=== PATIENT | female | born 1990 | race Caucasian/White ===

== ENCOUNTER 2019-11-06 00:32 | Day surgery (SDC) | payer OTHER, SELFPAY ==
[2019-10-25 14:59] VITALS: BMI 27.3
--- NOTE | 2019-11-06 08:40 | P.PNAN_ITS ---
Anes - Initial Pre Proc Eval Procedure: Operation Date: 11/06/19 12:00 Proposed Procedures p Excision Subcutaneous Mass Lower Abdomen - Reza Vegas MD Date/Time: 11/06/19 08:40 Surgeon: Reza Vegas MD Pre Op Diagnosis: Hypoechoic Nodule Near Scar Patient Data Age: 29 Gender: F Height: 1.55 m Weight: 65.77 kg Allergies Allergy/AdvReac Type Severity Reaction Status Date / Time hydrocodone AdvReac Intermediate SEVERE Verified 10/25/19 15:00 VOMITING NARCOTICS AdvReac SEVERE N/V Uncoded 10/25/19 15:00 Home Medications Medication Instructions Recorded Confirmed Type No Home Medications 10/22/19 10/25/19 History Patient hx anesthesia problems: none Family hx anesthesia problems: none [facility] Social History Social History Smoking status: Former smoker Alcohol intake: current 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 Questions were solicited and answers provided to the satisfaction of the patient/family/POA.
[2019-11-06] MEDS: LACTATED RINGERS 1,000 ML 30 ML IV CONT (10:40)
[2019-11-06 11:29] VITALS: BP 102/55; PULSE 72; RESP 16; TEMP 37.1; O2SAT 100
--- NOTE | 2019-11-06 12:01 | WPDHPUPDATE1 ---
History and Physical Update Update Date/Time: 11/06/19 12:01 History and Physical has been reviewed, including an updated exam of the patient. There are NO changes in the patient's condition. Risks, benefits, and alternatives have been discussed and questions answered. Patient agrees to proceed with procedure.
[2019-11-06] MEDS: BUPIVACAINE/EPINEPHRINE 0.5% 10 ML VIAL 20 ML INFILTRATE (12:22)
[2019-11-06] MEDS: KETOROLAC 30 MG/ML VIAL (*BKC) IV PUSH (12:47)
[2019-11-06 12:50] VITALS: BP 105/58; PULSE 80
--- NOTE | 2019-11-06 13:07 | PM.PROC ---
Procedure Note - Detailed Date of procedure: 11/06/19 Pre-op diagnosis: Hypoechoic Nodule Near Scar Post-op diagnosis: same Procedure performed: Excision of skin lesion Description of procedure: The patient was placed in the supine position. After a surgical time out confirming patient and procedure the patient was prepped and draped in the usual sterile fashion. Local anesthetic was administered in the skin and subcutaneously. The lesion measured 2.0 x 1.5 cm. It was palpable deeply and subcutaneous tissues. The palpable mass was slightly above the left corner of her scar. I started my incision on the scar and extended slightly laterally. An incision was made over the lesion and I dissected straight down through the fat with needlepoint Bovie cautery until I could feel the somewhat hard and subcutaneous mass. Then taking a thin margin circumferentially, I dissected down to and through the deep subcutaneous tissues and then completely excised the lesion. The lesion seen to be sitting right on some of the anterior fascia of the external oblique. Bleeding was controlled with electrocautery. After removing the main subcutaneous mass having grasped with an Allis as excise that we palpated externally and it measured about 2 x 1.5 cm. Palpating within the wound right on the fascia there was a little bit of hard tissue still so excise that plus little bit of the external oblique fascia in about 1 cm diameter area. 100 Vicryl suture was placed in a [id number] fashion and then 1 more simple 1 on this fascia to reapproximate the fascia over some underlying muscle. The wound was then closed in two layers. An un-dyed 3-0 vicryl deep dermal and a few subcutaneous 3 -0 Vicryl were placed and then a 4-0 undyed Vicryl running subcuticular closure was completed. Surgical glue applied as dressing. Patient tolerated this well. Anesthesia: local (0.5% Marcaine with and epinephrine) and other (G IV S) Surgeon: Reza Vgeas MD [employer] Specialist: EJANIE Cid, OR 1st assist Estimated blood loss (mL): 3 Drains: No Packing: No Pathology: yes (2 pieces of subcutaneous mass suspected to be endometrioma) Complications: No immediate complications Condition: stable Disposition: same day Findings: Fat surrounding a hard palpable subcutaneous mass that was laying right on top of the external oblique fascia.
[2019-11-06 13:20] VITALS: BP 114/57; PULSE 79
[2019-11-06 13:45] VITALS: BP 100/55; PULSE 65
== END 2019-11-06 13:50 | disposition home or self-care (01) ==
PROVIDERS: PCP Family Medicine; Visit Provider Surgery
PROC: (CPT 22903; principal; 2019-11-06 12:00)
DX: N80.6 Endometriosis in cutaneous scar (principal); Z87.891 Personal history of nicotine dependence
CPT/HCPCS: 22903; 88304; 88305; J1100; J1885; J2250; J2405; J2704; J3010; J7120

== ENCOUNTER 2023-07-21 11:05 | Outpatient (CLI) | payer OTHER, SELFPAY ==
--- NOTE | ~2023-07-21 | MMUS_ITS ---
EXAMINATION: MM diagnostic mack BI w gabe, US breast BI limited HISTORY: Palpable lump in the lower inner quadrant of the right breast TECHNIQUE: Craniocaudal, mediolateral, and mediolateral oblique 3-D tomosynthesis images of the breas ts were performed and synthetic 2-D images were generated. CAD analysis was submitted and interpreted . High resolution limited bilateral breast ultrasound was performed. COMPARISON: 07/15/2013 BREAST PARENCHYMAL COMPOSITION: There are scattered areas of fibroglandular density. FINDINGS: MAMMOGRAPHIC FINDINGS: No suspicious mass, calcification, or architectural distortion are identified in either breast to sug gest malignancy. There has been no suspicious interval change. No mammographic correlate is identifie d for the reported palpable abnormality of the right breast. ULTRASOUND: There is no evidence of focal abnormal solid or cystic mass in the vicinity of the reported palpable abnormality of concern in the right breast. A 3 mm cyst is noted in the upper outer quadrant of the l eft breast. IMPRESSION: 1. No specific mammographic or sonographic correlate is identified for the reported palpable abnormal ity of concern in the right breast. Further evaluation at this time should be based on clinical asses sment. Continued follow-up physical examination is recommended. 2. Recommend routine screening mammography beginning at age 40. BI-RADS Category 2: Benign finding(s). Reviewed, dictated and finalized at location A. CING ASSISTANT IMPRESSION: 1. No specific mammographic or sonographic correlate is identified for the repo rted palpable abnormality of concern in the right breast. Further evaluation at this time should be based on clinical assessment. Continued follow-up physical examination is recommended. 2. Recommend routine screening mammography beginning at age 40. BI-RADS Category 2: Benign finding(s).
== END 2023-07-21 11:06 | disposition home or self-care (01) ==
PROVIDERS: PCP Family Medicine; Visit Provider Obstetrics & Gynecology
DX: N63.10 Unspecified lump in the right breast, unspecified quadrant (principal)
CPT/HCPCS: 76642; 77061; 77062; 77065; 77066; G0279

== ENCOUNTER 2024-03-04 15:18 | Outpatient (CLI) | payer OTHER, SELFPAY ==
[2024-03-04 15:50] LABS: Basophils Percent Auto 0.6 % (0.2-1.2); Eosinophils Absolute Auto 0.1 K/mm3 (0-0.3); Eosinophils Percent Auto 1.7 % (0-4.4); Hematocrit 37.8 % (37.0-47.0); Immature Granulocyte Absolute 0.01 K/mm3 (0.00-0.031); Immature Granulocyte Percent A 0.2 % (0-0.5); Lymphocytes Absolute Auto 2.09 K/mm3 (0.9-3.2); Lymphocytes Percent Auto 31.6 % (18.3-44.2); Mean Corpuscular HGB Conc 34.4 g/dl (32-36); Mean Corpuscular Hemoglobin 32.3 pg (26-34); Mean Platelet Volume 10.2 fl (7.4-10.4); Monocytes Absolute Auto 0.5 K/mm3 (0.1-0.6); Monocytes Percent Auto 7.1 % (2.6-8.5); Neutrophils Absolute Auto 3.9 K/mm3 (1.3-6.7); Neutrophils Percent Auto 58.8 % (45.5-73.1); Platelet Count Result 251 k/mm3 (150-375); Red Blood Count 4.02 M/mm3 (4.2-5.4); Red Cell Distribution Width 12.7 % (11.5-14.5); White Blood Count 6.6 K/mm3 (4.5-10.0)
== END 2024-03-04 15:19 | disposition home or self-care (01) ==
PROVIDERS: PCP Family Medicine; Visit Provider Obstetrics & Gynecology
DX: N93.9 Abnormal uterine and vaginal bleeding, unspecified (principal); Z01.818 Encounter for other preprocedural examination
CPT/HCPCS: 36415; 85025; 86850; 86900; 86901

== ENCOUNTER 2024-03-08 01:37 | Day surgery (SDC) | payer OTHER, SELFPAY ==
--- NOTE | 2023-09-05 11:59 | P.HP_ITS ---
H&P: HPI History of Present Illness Date/Time: 09/05/23 11:59 Chief Complaint: Pelvic pain/excessive heavy bleeding Narrative: A 33-year-old female 3 para3 admitted robotic hysterectomy and bilateral salpingectomy secondary to excessive heavy bleeding and pelvic pain. This patient is at a ablation before in the past which has failed to control her vaginal bleeding. Risks and benefits were reviewed including the exclusive of , aspiration pneumonia, bleeding, transfusion perforation injury to bowel, bladder ureters, or other internal organs with need for open laparotomy. She received the ACOG handout entitled the hysterectomy. She had all questions answered. 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 Meds Home Medications and Allergies Home Medications Medication Instructions Recorded Confirmed Type oxycodone-acetaminophen 5 mg-325 1 tablet PO Q6H PRN pain #8 tabs 11/06/19 Rx mg tablet Allergies Allergy/AdvReac Type Severity Reaction Status Date / Time hydrocodone AdvReac Intermediate SEVERE Verified 11/06/19 10:33 VOMITING NARCOTICS AdvReac Unknown PT STATES Uncoded 11/06/19 10:33 SUPER SENSITIVE CAUSES SOME N/V Exam Const: General: cooperative, healthy appearing, comfortable and average body habitus Orientation/consciousness: oriented to person, oriented to place and oriented to time HENMT: Head: normal to inspection Resp: Effort & Inspection: normal respiratory effort Cardio: Rate: regular rate Rhythm: regular rhythm Heart sounds: S1 normal heart sound present and S2 normal heart sound present GI: Inspection: normal to inspection : External Female Exam: normal external appearance Speculum Exam - Vagina: normal appearance of the vagina and vaginal bleeding Speculum Exam - Cervix: normal appearance of the cervix Bimanual exam- vagina & uterus: enlarged Bimanual Exam- Adnexa, other: normal adnexae Assessment and Plan Assessment and plan (1) Excessive vaginal bleeding: Code(s): N93.9 - Abnormal uterine and vaginal bleeding, unspecified Status: Acute (2) Pelvic pain: Code(s): R10.2 - Pelvic and perineal pain Status: Acute Plan Robotic total vaginal hysterectomy and bilateral salpingectomy
[2024-02-28 12:28] VITALS: BMI 25.0
--- NOTE | 2024-02-28 12:34 | PC.NURSE ---
Report to the Outpatient Waiting Room, entrance under the green pavilion located off [facility], at time _0930_ on date _[id number]_. Planned Procedure Time: _1130_. Time changes happen often and if your time is changed the preop area will call you the afternoon before. - You and your visitor will be asked to self-screen and do not enter if you have any COVID symptoms. - A mask is optional within the hospital at this time. Patients may have clear liquids (water, carbonated beverages, clear teas, apple juice) until 3 hours prior to surgery with a maximum of 20 ounces. - No food from midnight until time of surgery Take the following medications with a SIP of water the morning of surgery: ___BC pill ok to take. DO NOT STOP ANY OF YOUR OTHER PRESCRIPTION MEDICATIONS PRIOR TO SURGERY ?EXCEPT THE FOLLOWING Medications to discontinue per physician ____None Date to take last dose Please no make-up, nail tunisian, hairspray, perfume, deodorant, or body powder the day of surgery. No jewelry (including any body piercings) or valuables the day of surgery, leave them at home. Please take a shower or bath the night before, or the morning of, surgery with an antibacterial soap. Wear comfortable, loose fitting clothing. - Jewelry must be removed prior to entering the operating room. Rings and piercings that are not removed may be cut off. - The hospital will not accept responsibility for valuables. - Please leave all valuables, including medications, at home the day of surgery. If you are going home after surgery, a licensed tow motor driver must drive you home. - NO public transportation without another adult if you receive anesthesia. - We recommend that an adult stay with you for 24 hours following discharge. - We also recommend that you do not drive, make important decision, drink alcoholic beverages, or take any drugs that were not prescribed by your health care provider for at least 24 hours after your discharge time. Follow any additional instructions given to you from your surgeon. If you or anyone in your household have experienced Covid symptoms in the past week, please notify your surgeon or the nurse liaison at the phone number below for possible testing. Telephone instructions given to __Alyssa____and asked if any additional questions and then verbalized understanding. Patient advised to call surgeon office or pre surgery nurse liaison [phone] if any additional questions.
--- NOTE | 2024-03-05 12:41 | PM.IMHP ---
H&P: HPI History of Present Illness Date/Time: 03/05/24 12:41 Chief Complaint: excessive heavy bleeding pelvic and dyspareunia Narrative: pre multiparous patient robotic hysterectomy and salpingectomy secondary to pelvic pain bleeding and dyspareunia refractory to medical therapy. Risks and benefits reviewed including but exclusive aspiration bleeding, injury to, other internal organs she received hysterectomy as well as Rojelio she had all questions answered asked proceeded [facility] Surgical History Surgical History History of delivery 2012,2015,2018 Status post tonsillectomy 2005 Family History Family History Father Hypercholesteremia Mother Disorder of thyroid gland Daughter Asthma Son Asthma Unknown Disorder of thyroid gland Leukemia Dementia Malignant lymphoma Myocardial infarction Social History Social History Years smoked: 8 Smoking status: Former smoker Tobacco type: cigarettes Smoking end date: 02/28/16 Alcohol intake: current Living arrangements: with family Occupation/Education: occupation 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 Spiritual care concerns: No Meds Home Medications and Allergies Home Medications Medication Instructions Recorded Confirmed Type norethindrone acetate 1 mg-ethinyl 1 tablet PO DAILY 02/28/24 02/28/24 History estradiol 20 mcg tablet (Junel) Allergies Allergy/AdvReac Type Severity Reaction Status Date / Time hydrocodone AdvReac Intermediate SEVERE Verified 02/28/24 12:26 VOMITING NARCOTICS AdvReac Unknown PT STATES Uncoded 02/28/24 12:26 SUPER SENSITIVE CAUSES SOME N/V Exam Const: General: cooperative, healthy appearing and comfortable Nutritional Appearance: average body habitus Orientation/consciousness: oriented to person, oriented to place and oriented to time Resp: Effort & Inspection: normal respiratory effort Cardio: Rate: regular rate Rhythm: regular rhythm Heart sounds: S1 normal heart sound present and S2 normal heart sound present GI: Inspection: normal to inspection : External Female Exam: normal external appearance Speculum Exam - Vagina: normal appearance of the vagina Speculum Exam - Cervix: normal appearance of the cervix Bimanual exam- vagina & uterus: enlarged and Uterine tenderness Bimanual Exam- Adnexa, other: normal adnexae Assessment and Plan Assessment and plan (1) Excessive vaginal bleeding: Code(s): N93.9 - Abnormal uterine and vaginal bleeding, unspecified Status: Acute (2) Pelvic pain: Code(s): R10.2 - Pelvic and perineal pain Status: Acute Assessment and Plan: robotic total vaginal hysterectomy and bilateral salpingectomy
[2024-03-08] VITALS (7 sets, daily range): BP systolic 105–128; BP diastolic 50–85; PULSE 71–97; RESP 12–20; TEMP 36.4–37.7; O2SAT 98–100; BMI 25.4
--- NOTE | 2024-03-08 06:28 | WPDHPUPDATE1 ---
History and Physical Update Update Date/Time: 03/08/24 06:28 History and Physical has been reviewed, including an updated exam of the patient. There are NO changes in the patient's condition. Risks, benefits, and alternatives have been discussed and questions answered. Patient agrees to proceed with procedure.
--- NOTE | 2024-03-08 09:46 | P.PNAN_ITS ---
Anes - Initial Pre Proc Eval Procedure: Operation Date: 03/08/24 11:30 Proposed Procedures p Robotic Assisted Total Vaginal Hysterectomy with Bilateral Salpingectomy - David Hogan MD Date/Time: 03/08/24 09:46 Surgeon: David Hogan MD Pre Op Diagnosis: irr. bleeding, pelvic pain,dyspareunia Patient Data Age: 33 Gender: F Height: 1.55 m Weight: 60 kg Allergies Allergy/AdvReac Type Severity Reaction Status Date / Time hydrocodone AdvReac Intermediate SEVERE Verified 02/28/24 12:26 VOMITING NARCOTICS AdvReac Unknown PT STATES Uncoded 02/28/24 12:26 SUPER SENSITIVE CAUSES SOME N/V Home Medications Medication Instructions Recorded Confirmed Type norethindrone acetate 1 mg-ethinyl 1 tablet PO DAILY 02/28/24 02/28/24 History estradiol 20 mcg tablet (Junel) oxycodone-acetaminophen 5 mg-325 1 tablet PO Q4H PRN pain #20 tabs 03/08/24 Rx mg tablet (Percocet) Patient hx anesthesia problems: none Family hx anesthesia problems: none Results Review: All pre-operative results and documents have been reviewed as part of the pre- operative evaluation. 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 Informed Consent: The patient's anesthetic plan and its attendant risks and benefits were discussed with the patient/family/POA. Questions were solicited and answers provided to the satisfaction of the patient/family/POA.
[2024-03-08] MEDS: LACTATED RINGERS 1,000 ML 30 ML IV CONT ×2 (10:00→12:04)
[2024-03-08] MEDS: SCOPOLAMINE 1 MG PATCH 1 PATCH TRANSDERM (10:13)
[2024-03-08] MEDS: ACETAMINOPHEN 500 MG TABLET 1000 MG PO (10:13)
[2024-03-08] MEDS: KETOROLAC 15 MG/ML VIAL (*BKC) IV PUSH (10:13)
[2024-03-08] MEDS: ceFAZolin 2 GM/D5W 50 ML 2 GM/50 ML BAG IVPB (10:54)
--- NOTE | 2024-03-08 11:46 | P.OP_ITS ---
Procedure Note - Detailed Date of Procedure 03/08/24 Pre-op Diagnosis irr. bleeding, pelvic pain,dyspareunia Post-op Diagnosis Same Procedure Performed Robotic vaginal hysterectomy bilateral salpingectomy Surgeon David Hogan MD Anesthesia General Indications 33 female with bleeding refractory to medical therapy Findings uterus enlarged. Tubes status post tubal ligation Description of Procedure patient was prepped draped sterile fashion placed dorsal position under excellent general endotracheal anesthesia weighted speculum placed in posterior fornix vagina. Anterior lip the cervix grasped with single-tooth tenaculum. Uterus sounded to cm. Serial dilatation with fragmented dilators followed by passage of the 10. YANET and the 3. Cold cup. Next the 16 Syriac catheter was placed and bladder drained clear urine. The weighted speculum and and single- tooth were removed. The gloves were changed. A supraumbilical incision made the Veress needle passed in the abdomen. Abdomen filled with CO2 gas [id number]. The 8mm trocar advanced in the abdomen. Downside visualized no injury seen. Patient placed in Trendelenburg and right left lateral quadrant incisions made. The 8mm trocars advanced under direct visualization assuring no injury. A right upper quadrant incision made the 8mm trocar advanced under direct visualization assuring no injury. The robot was docked. Attention was turned to the classification counselor. The left round ligament was grasped, burned, cut. Anteriorly a bladder flap was formed by sharply dissecting the peritoneum and reflecting the bladder caudally away from the cervix and uterus the opposite round ligament was clamped, burned, cut. The tubes were status post tubal ligation and the distal portions on each tube were incised from the ovarian complex and removed through the right upper quadrant incision. The stumps of the tubes were then sharply dissected away from the ovary bilaterally. . Conserving the left ovary the utero-ovarian ligament was clamped, burned, cut and brought to the level of previously cut round ligament. In similar fashion on the right, conserving the right ovary, the utero-ovarian ligament was clamped, burned, cut and brought to the level of previous cut round ligament. The cardinal broad ligaments on the left than serially skeletonized clamping burning cutting and hugging the cervix and uterus until the uterine vessels could be seen on the left. These were individually clamped, burned, cut. In similar fashion on the right the cardinal broad ligaments were skeletonized clamping burning cutting and bringing this down the lateral edge of the uterus and cervix until the uterine vessels could be seen the right these were individually clamped, burned, cut. Excellent blanching of the uterus was noted in a colpotomy incision was made. Cervix uterus and stumps of tubes removed through the vagina. The vagina was then closed with continuous running 0V lock from lateral edge to lateral edge back to the midline. Irrigation undertaken to clear. Hemostasis was assured over Robbins derm was placed over the raw surface area the vagina. The robot was undocked. The gas removed from the abdomen. The trocars removed the incisions closed with 4 Monocryl glue. The instruments removed from the vagina the patient was awakened went to recovery in satisfactory condition. All sponge, needle, instrument counts were correct. There were no immediate complications noted Estimated Blood Loss 25 Drains No Packing No Pathology Yes Complications No immediate complications Condition Stable Disposition PACU
--- NOTE | 2024-03-08 11:52 | PM.DS ---
DS: Admitting Diagnosis Discharge Date 03/08/2020 Admitting Diagnosis pelvic pain bleeding DS: Discharge Diagnosis Discharge Diagnosis (1) Pelvic pain: Code(s): R10.2 - Pelvic and perineal pain Status: Acute (2) Excessive vaginal bleeding: Code(s): N93.9 - Abnormal uterine and vaginal bleeding, unspecified Status: Acute DS: Summary Hospital Course Reason for hospitalization: patient was admitted some foot 4 robotic hysterectomy salpingectomy procedure was unremarkable Hospital Course: patient's hospital course she expresses desire leave same day was discharged preservation she was eating ambulating voiding and bleeds. Routine discharge instructions Time Spent with Patient Time attestation: Total time spent providing and/or coordinating discharge services: Exam Const: General: cooperative, healthy appearing and comfortable Nutritional Appearance: average body habitus Orientation/consciousness: oriented to person, oriented to place and oriented to time HENMT: Head: normal to inspection Resp: Effort & Inspection: normal respiratory effort Cardio: Rate: regular rate Rhythm: regular rhythm Heart sounds: S1 normal heart sound present and S2 normal heart sound present GI: Inspection: normal to inspection and incision ( wounds are clean dry and intact) DS: Data Data Completed and Pending Pending studies at discharge: Pending at discharge 03/08/24 11:37 Surgical [PTH] Routine Discharge Plan Discharge Patient Disposition: Home, Self-Care Discharge Instructions: Remove the Scopolamine patch that was placed behind your ear in 72 hours or less. Wash your hands after touching. Stand Alone Forms: General Discharge Instructions Follow-up/Referrals: David Cruz MD [Physician] - Discharge Medications: New oxycodone-acetaminophen [Percocet] 5-325 mg tablet 1 tablet PO Q4H PRN (Reason: pain) Qty: 20 0RF No Action norethindrone ac-eth estradiol [09/23 (21)] 1-20 mg-mcg tablet 1 tablet PO DAILY
[2024-03-08] MEDS: FUROSEMIDE INJ 40 MG/4 ML VIAL 20 MG IV PUSH (12:58)
[2024-03-08] MEDS: SODIUM CHLORIDE 0.9% IV 500 ML 999 ML IV CONT (12:58)
--- NOTE | 2024-03-08 13:58 | PC.NURSE ---
This patient, Brunilda Adair, was received from PACU via bed on 03/08/24 at 1312. Patient/family oriented to unit policies and routines.
[2024-03-08] MEDS: SIMETHICONE 80 MG TAB.CHEW PO (14:57)
[2024-03-08] MEDS: IBUPROFEN 600 MG TABLET PO (14:57)
[2024-03-08] MEDS: DOCUSATE SODIUM 100 MG CAPSULE PO (16:42)
== END 2024-03-08 18:00 | disposition home or self-care (01) ==
LOC: ANHSURGERY 10:28 → ANHOB2 13:49
PROVIDERS: PCP Family Medicine; Visit Provider Obstetrics & Gynecology
PROC: (CPT 58552; principal; 2024-03-08 11:30)
DX: N84.0 Polyp of corpus uteri (principal); N80.03 Adenomyosis of the uterus; D25.9 Leiomyoma of uterus, unspecified; N71.1 Chronic inflammatory disease of uterus; N72 Inflammatory disease of cervix uteri; Z79.891 Long term (current) use of opiate analgesic; Z98.890 Other specified postprocedural states; Z98.51 Tubal ligation status; Z87.891 Personal history of nicotine dependence; Z80.7 Family history of other malignant neoplasms of lymphoid, hematopoietic and related tissues; Z82.49 Family history of ischemic heart disease and other diseases of the circulatory system
CPT/HCPCS: 58552; S2900; 36415; 85025; 86850; 86900; 86901; 88307; 99199; A9270; J0330; J0690; J1100; J1200; J1885; J1940; J2250; J2405; J2704; J3010; J7030; J7040; J7120